=== PATIENT | female | born 1940 | race African-American/Black ===

== ENCOUNTER 2020-10-27 18:09 | Emergency (ER) | payer MEDICARE, SELFPAY ==
--- NOTE | ~2020-10-27 | XR_ITS ---
XR chest 1V portable 10/27/2020 19:10 Indication: Shortness of breath and cough. Headache. Procedure: AP portable chest Comparison: No prior studies for comparison. Findings: Heart size normal. No focal air space disease, pulmonary edema, pleural effusion or suspect ed pneumothorax. No acute osseous abnormality. Impression: 1: No acute cardiopulmonary disease. Reviewed, dictated and finalized at location A. STRINGER Impression: 1: No acute cardiopulmonary disease.
[2020-10-27 18:28] VITALS: BP 163/60; PULSE 110; RESP 18; TEMP 39.4; O2SAT 97
--- NOTE | 2020-10-27 18:49 | ECG_ITS ---
Measurements Intervals [place] Rate: 105 P: 48 IL: 127 QRS: -32 QRSD: 88 T: 40 QT: 314 QTc: 416 Interpretive Statements SINUS TACHYCARDIA POSSIBLE LEFT ATRIAL ENLARGEMENT LEFT AXIS DEVIATION POOR R WAVE PROGRESSION, ANTERIOR LEADS BASELINE WANDER- I, II, III, AVR, AVL, AVF, V1, V6 BORDERLINE ECG Electronically Signed On 10-28-2020 7:14:53 CASINO ATTENDANT by Ken Persaud D.O.
[2020-10-27 19:04] VITALS: O2SAT 94
[2020-10-27 19:05] VITALS: BP 136/66; PULSE 102; RESP 30; O2SAT 100
[2020-10-27 19:13] LABS: Basophils Percent Auto 0.3 % (0.2-1.2); Eosinophils Percent Auto 0.3 % (0-4.4); Hematocrit 36.6 % (37.0-47.0); Hemoglobin 11.3 g/dL (12.0-15.0); Immature Granulocyte Absolute 0.02 K/mm3 (0.00-0.031); Immature Granulocyte Percent A 0.3 % (0-0.5); Lymphocytes Absolute Auto 0.94 K/mm3 (0.9-3.2); Lymphocytes Percent Auto 14.6 % (18.3-44.2); Mean Corpuscular HGB Conc 30.9 g/dl (32-36); Mean Corpuscular Hemoglobin 32.3 pg (26-34); Mean Corpuscular Volume 104.6 fl (80-100); Mean Platelet Volume 9.5 fl (7.4-10.4); Monocytes Absolute Auto 0.6 K/mm3 (0.1-0.6); Monocytes Percent Auto 9.4 % (2.6-8.5); Neutrophils Absolute Auto 4.9 K/mm3 (1.3-6.7); Neutrophils Percent Auto 75.1 % (45.5-73.1); Platelet Count Result 251 k/mm3 (150-375); Red Cell Distribution Width 13.2 % (11.5-14.5); White Blood Count 6.5 K/mm3 (4.5-10.0)
--- NOTE | 2020-10-27 19:20 | ED.URI ---
HPI - URI/Sore Throat General Chief Complaint: Upper Respiratory Infection Stated Complaint: shortness of breath Time Seen by Provider: 10/27/20 18:50 Source: patient Mode of arrival: ambulatory Limitations: no limitations History of Present Illness HPI Narrative: A 80-year-old female presents to the emergency department with complaints of body aches pains cough and shortness of breath. Patient states that she was tested for Covid over 6 weeks ago. She notes that within the last week or so her symptoms have developed. She notes a cough and some shortness of breath associated with this. She states right now at rest she is not complaining of any issues. She states her biggest issue is the cough and notes that the only reason she came in was because of her daughter's urging her to. Related Data Allergies Allergy/AdvReac Type Severity Reaction Status Date / Time No Known Allergies Allergy Unverified 12/20/14 11:10 Review of Systems Review of Systems: Narrative: CONSTITUTIONAL: Denies fever, chills, or sweats. EYES: Denies visual changes, redness, or discharge. ENT: Denies rhinorrhea, congestion, sore throat, or otalgia. CARDIOVASCULAR: Denies chest pain, palpitations, or edema. RESPIRATORY: Endorses persistent cough. GASTROINTESTINAL: Denies abdominal pain, nausea, vomiting, or diarrhea. GENITOURINARY: Denies dysuria or hematuria. SKIN: Denies rash or itching. MUSCULOSKELETAL: Denies back pain, joint pain, or myalgia. NEUROLOGIC: Denies headache, numbness, dizziness, or weakness. PSYCHIATRIC: Denies anxiety or depression. Exam Narrative: Exam Narrative: GENERAL: Well-appearing, well-nourished, and in no acute distress. HEAD: Normocephalic, atraumatic. EYES: PERRLA and EOMI. ENT: Nares clear, no rhinorrhea or epistaxis. Mucous membranes moist. Oropharynx without tonsillar hypertrophy exudate or other lesions. Bilateral TMs pearly ramirez nonbulging NECK: Supple. No adenopathy or masses. No carotid bruits or JVD CHEST: Clear to auscultation. No respiratory distress. No wheezes rales or rhonchi HEART: Regular rate and rhythm. No murmur heard. Normal peripheral pulses. ABDOMEN: Soft, nontender, nondistended, normal active bowel sounds. EXTREMITIES: Normal range of motion. No edema. SKIN: Warm, dry, no rash. NEURO: No focal deficits. Alert and oriented x3. PSYCH: Normal mood and affect. Course Vital Signs Vital signs: Vital Signs Temperature 39.4 C H 10/27/20 18:28 Pulse Rate 110 H 10/27/20 18:28 Respiratory Rate 18 10/27/20 18:28 Blood Pressure 163/60 H 10/27/20 18:28 Pulse Oximetry 97 10/27/20 18:28 Temperature 37.1 C 10/27/20 20:27 Pulse Rate 94 10/27/20 20:27 Respiratory Rate 20 10/27/20 20:27 Blood Pressure 134/72 10/27/20 20:27 Pulse Oximetry 100 10/27/20 20:27 MDM - URI/Sore Throat MDM Narrative Medical decision making narrative: In brief this 80-year-old female came into the emergency department at the urging of her daughter. She states that she feels fine but has had a nagging cough. Based on her history and physical I feel she likely does have COVID-19. We will plan to reswab her. Her labs are otherwise reassuring. Patient's vital signs normalized. Feel she is appropriate for discharge for continued home quarantine and conservative treatment. Medical Records Attestation: I reviewed the patient's medical records. Lab Data Attestation: I reviewed the patient's lab results. Result diagrams: 10/27/20 19:10/27/20 19:01 Labs: Lab Results 10/27/20 10/27/20 10/27/20 Range/Units 19:01 19:01 19:01 WBC 6.5 (4.5-10.0) K/mm3 RBC 3.50 L (4.2-5.4) M/mm3 Hgb 11.3 L (12.0-15.0) g/dL Hct 36.6 L (37.0-47.0) % MCV 104.6 H (80-100) fl MCH 32.3 (26-34) pg MCHC 30.9 L (32-36) g/dl RDW 13.2 (11.5-14.5) % Plt Count 251 (150-375) k/mm3 MPV 9.5 (7.4-10.4) fl Immature Gran % (Auto) 0.3 (0-0.5) % Neut %
[2020-10-27 19:24] LABS: Anion Gap 8 mmol/L (8-16); Blood Urea Nitrogen 23 mg/dL (7-17); Calcium 9.1 mg/dL (8.4-10.2); Carbon Dioxide 28 mmol/L (22-30); Chloride 102 mmol/L (98-107); Estimated CRCL calculation 32 ml/min; Estimated Glomerular Filt Rate 48; Glucose 130 mg/dL (65-105); Lactic Acid Reflex 2.1 mmol/L (0.7-2.1); Potassium 4.3 mmol/L (3.4-5.0); Sodium 138 mmol/L (137-145)
[2020-10-27] MEDS: KETOROLAC 15 MG/ML VIAL (*BKC) IV PUSH (19:58)
[2020-10-27] MEDS: guaiFENesin/DEXTROMETHORPHAN 10 ML UDC PO (19:58)
[2020-10-27 20:00] VITALS: BP 150/107; PULSE 111; RESP 23; O2SAT 97
[2020-10-27 20:27] VITALS: BP 134/72; PULSE 94; RESP 20; TEMP 37.1; O2SAT 100
[2020-10-27 22:09] LABS: Reflex Lactic Acid Yes or No Add Lactic
[2020-10-28 17:37] LABS: SARS-CoV-2 RNA PCR Positive
== END 2020-10-27 20:49 | disposition home or self-care (01) ==
PROVIDERS: Emergency Medicine; Emergency Provider Emergency Medicine
DX: U07.1 COVID-19 (principal)
CPT/HCPCS: 36415; 71045; 80048; 83605; 85025; 87040; 93005; 96374; 99284; A9270; C9803; J1885; U0003; U0005

== ENCOUNTER 2022-08-21 19:08 | Emergency (ER) | payer MEDICARE, SELFPAY ==
--- NOTE | ~2022-08-21 | XR_ITS ---
EXAMINATION: XR chest 2V Exam Date/Time: 08/21/2022 19:35 DRAFTER SEISMOGRAPH HISTORY: Short of breath, COUGH, BODY ACHES, FEVER Comparison: 10/27/2020. RESULT: Lines, tubes, and devices: None. Lungs and pleura: Diffuse reticular and reticulonodular opacities with cuffing. Cardiomediastinal silhouette: Stable. Other: No acute osseous or upper abdominal finding. IMPRESSION: Pulmonary opacities may represent bronchiolitis, as can be seen with atypical infection, asthma, aspi ration, and small airways disease. Reviewed, dictated and finalized at location K. TER SEISMOGRAPH IMPRESSION: Pulmonary opacities may represent bronchiolitis, as can be seen with atypical i nfection, asthma, aspiration, and small airways disease.
[2022-08-21 19:07] VITALS: BP 157/61; PULSE 106; RESP 18; O2SAT 99
--- NOTE | 2022-08-21 19:15 | ECG_ITS ---
Measurements Intervals [facility] Rate: 107 P: 59 VT: 137 QRS: -20 QRSD: 85 T: 38 QT: 327 QTc: 438 Interpretive Statements SINUS TACHYCARDIA BASELINE WANDER- V3 ABNORMAL ECG COMPARED TO PRIOR ECG 10-27-2020 18:55 NO SIGNIFICANT CHANGES Electronically Signed On 08-21-2022 23:22:13 ASH KIER BOILER by Ken Persaud D.O.
--- NOTE | 2022-08-21 19:16 | ED.SOB ---
HPI - SOB/Dyspnea General Chief Complaint: Shortness of Breath/Dyspnea Stated Complaint: DIFFICULTY IN BREATHING; BODY ACHES History of Present Illness HPI Narrative: This is an 82-year-old female past medical history of diabetes, hypertension, presents emergency department complaining of productive cough and shortness of breath for the past day associated with body aches. She denies any known sick contacts and is vaccinated for COVID and flu. Denies blood in cough, chest pain diarrhea, vomiting or loss of consciousness. Related Data Allergies Allergy/AdvReac Type Severity Reaction Status Date / Time Penicillins Allergy Nausea and Unverified 08/21/22 19:16 Vomiting Review of Systems Review of Systems: CONSTITUTIONAL: Denies fever, chills, or sweats. EYES: Denies visual changes, redness, or discharge. ENT: rhinorrhea, congestion, Denies sore throat, or otalgia. CARDIOVASCULAR: Denies chest pain, palpitations, or edema. RESPIRATORY: Cough and dyspnea. GASTROINTESTINAL: Denies abdominal pain, nausea, vomiting, or diarrhea. GENITOURINARY: Denies dysuria or hematuria. SKIN: Denies rash or itching. MUSCULOSKELETAL: Denies back pain, joint pain, or myalgia. NEUROLOGIC: Denies headache, numbness, dizziness, or weakness. PSYCHIATRIC: Denies anxiety or depression. [facility] Past Medical History Medical History (Updated 08/21/22 @ 21:31 by Lb Mora MD) Diabetes mellitus Hypertension Surgical History Surgical History (Updated 08/21/22 @ 19:27 by Geoff Driver) History of knee replacement Exam Narrative: GENERAL: Well-developed, well-nourished, and in no acute distress. HEAD: Normocephalic, atraumatic. EYES: PERRLA and EOMI. ENT: Nares clear, no rhinorrhea or epistaxis. Mucous membranes moist. Oropharynx without tonsillar hypertrophy exudate or other lesions. NECK: Supple. No adenopathy or masses. No carotid bruits or JVD CHEST: Clear to auscultation. No respiratory distress. No wheezes rales or rhonchi HEART: Tachycardic with regular rhythm. No murmur heard. Normal peripheral pulses. ABDOMEN: Soft, nontender, nondistended, normal active bowel sounds. EXTREMITIES: Normal range of motion. No edema. SKIN: Warm, dry, no rash. NEURO: No focal deficits. Alert and oriented x3. PSYCH: Normal mood and affect. Course Course Emergency Course: 23:00 - Chemistries not concerning for kidney injury. Patient tested positive for influenza A. She walked maintaining an O2 saturation in the mid 90s. She tolerated PO and her heart rate improved with IV fluids. Will discharge with Tamiflu, antipyretics and nausea medications. Discussed return emergency precautions including signs/symptoms of ACS and acute abdomen. The patient voiced understanding and is comfortable with the plan. All questions answered to her satisfaction. Vital Signs Vital signs: Vital Signs Pulse Rate 106 H 08/21/22 19:07 Respiratory Rate 18 08/21/22 19:07 Blood Pressure 157/61 H 08/21/22 19:07 Pulse Oximetry 99 08/21/22 19:07 Oxygen Delivery Room Air 08/21/22 19:07 Pulse Rate 102 H 08/21/22 21:14 Respiratory Rate 18 08/21/22 19:07 Blood Pressure 157/61 H 08/21/22 19:07 Pulse Oximetry 97 08/21/22 21:14 Oxygen Delivery Room Air 08/21/22 20:41 MDM - SOB/Dyspnea MDM Narrative Medical decision making narrative: Plan: Labs, imaging, IV fluids, reassess Differential Diagnosis Differential diagnosis: Likely community acquired pneumonia and other (COVID, influenza, ACS, metabolic abnormality, other) Lab Data Result diagrams: 08/21/22 20:05 08/21/22 21:55 Labs: Lab Results 08/21/22 08/21/22 08/21/22 Range/Units 20:05 20:05 21:55 WBC 10.6 H (4.5-10.0) K/mm3 RBC 3.88 L (4.2-5.4) M/mm3 Hgb 12.9 (12.0-15.0) g/dL Hct 43.8 (37.0-47.0) % MCV 112.9 H (80-100) fl MCH 33.2 (26-34) pg MCHC 29.5 L (32-36) g/dl RDW 13.2 (11.5-14.5) % Plt Count
--- NOTE | 2022-08-21 19:37 | PC.NURSE ---
Patient off unit to radiology
[2022-08-21 20:11] LABS: Hematocrit 43.8 % (37.0-47.0); Hemoglobin 12.9 g/dL (12.0-15.0); Mean Corpuscular HGB Conc 29.5 g/dl (32-36); Mean Corpuscular Hemoglobin 33.2 pg (26-34); Mean Corpuscular Volume 112.9 fl (80-100); Mean Platelet Volume 10.2 fl (7.4-10.4); Platelet Count Result 232 k/mm3 (150-375); Red Blood Count 3.88 M/mm3 (4.2-5.4); Red Cell Distribution Width 13.2 % (11.5-14.5); White Blood Count 10.6 K/mm3 (4.5-10.0)
[2022-08-21] MEDS: SODIUM CHLORIDE 0.9% IV 500 ML 999 ML IV CONT (20:12)
[2022-08-21 20:47] LABS: Influenza A QL RT-PCR Positive (Negative); Influenza B QL RT-PCR Negative (Negative); SARS-CoV-2 RNA PCR Negative
[2022-08-21 21:14] VITALS: PULSE 102; O2SAT 97
[2022-08-21 21:18] LABS: Anisocytosis 1+ (NORMAL); Band Neutrophils Percent 5 % (0-6); Eosinophils Absolute Manual 0.21 K/mm3 (0.02-0.5); Eosinophils Percent Manual 2 % (0-4); Lymphocytes Absolute Manual 0.95 K/mm3 (1.1-4.5); Macrocytosis 1+ (NORMAL); Metamyelocytes Percent 1 %; Monocytes Absolute Manual 0.21 K/mm3 (0.1-0.90); Monocytes Percent Manual 2 % (3-9); Neutrophils Absolute Manual 9.11 K/mm3 (1.7-7.2); Neutrophils Percent Manual 81 % (46-73); Platelet Estimate Adequate (Adequate); Schistocytes None Seen (NORMAL); Total Cells Counted 100
[2022-08-21 22:27] LABS: Alanine Aminotransferase 14 U/L (6-35); Alkaline Phosphatase 96 U/L (38-126); Anion Gap 7 mmol/L (8-16); Aspartate Amino Transferase 21 U/L (14-36); Bilirubin,Total 0.6 mg/dL (0.2-1.3); Blood Urea Nitrogen 15 mg/dL (7-17); Calcium 8.7 mg/dL (8.4-10.2); Carbon Dioxide 19 mmol/L (22-30); Chloride 111 mmol/L (98-107); Estimated CRCL calculation 44 ml/min; Estimated Glomerular Filt Rate > 60; Glucose 115 mg/dL (65-110); Potassium 3.8 mmol/L (3.4-5.0); Sodium 137 mmol/L (137-145)
[2022-08-21 22:39] LABS: NT Pro B Type Natriuretic Pept 157 pg/mL (5-100); Troponin I < 0.012 ng/mL (0.000-0.034)
--- NOTE | 2022-08-21 22:58 | PC.NURSE ---
Patient report given to KAROL Chowdhury. All questions answered and care of patient transferred.
[2022-08-21 23:24] VITALS: BP 158/92; PULSE 107; RESP 16; TEMP 37; O2SAT 97
[2022-08-21] MEDS: OSELTAMIVIR PHOSPHATE 30 MG CAPSULE PO (23:25)
== END 2022-08-21 23:25 | disposition home or self-care (01) ==
PROVIDERS: Emergency Provider Preventive Medicine Aerospace Medicine; PCP Internal Medicine
DX: J10.1 Influenza due to other identified influenza virus with other respiratory manifestations (principal); R06.02 Shortness of breath; Z20.822 Contact with and (suspected) exposure to COVID-19; E11.9 Type 2 diabetes mellitus without complications; I10 Essential (primary) hypertension; Z96.659 Presence of unspecified artificial knee joint
CPT/HCPCS: 36415; 71046; 80053; 83880; 84484; 85025; 87502; 93005; 96360; 99284; A9270; J7040; U0003; U0005